=== PATIENT | female | born 1965 | race Caucasian/White ===

== ENCOUNTER 2018-10-20 02:52 | Emergency (ER) | payer SELFPAY ==
--- NOTE | 2018-10-20 03:31 | ED ---
Abdominal Pain/Female - HPI Summary HPI Summary: A 53 y/o F presents to ED c/o sudden-onset L-sided abd pain onset 2300 last night. The pain radiates to her back. Associated sx: nausea. Denies v/d, fever, dizziness, CARABALLO, dysuria. She has not had this type of pain previously. No previous hx of kidney stones. Past abd surgeries: cholecystectomy. Smoker. - History of Current Complaint Chief Complaint: EDAbdPain Stated Complaint: "L ABD PAIN" PER PT Time Seen by Provider: 10/20/18 03:23 Hx Obtained From: Patient, Medical Records Onset/Duration: Sudden Onset, Lasting Hours, Still Present Timing: Constant Severity Initially: Moderate Severity Currently: Severe Pain Intensity: 7 Pain Scale Used: 0-10 Numeric Location: Discrete At: LLQ Radiates: Yes Radiates to: Back Associated Signs and Symptoms: Positive: Nausea, Other: - neg: CARABALLO. Negative: Fever, Dizzy, Urinary Symptoms, Vomiting, Diarrhea Allergies/Adverse Reactions: Allergies Allergy/AdvReac Type Severity Reaction Status Date / Time MS Sulfa Antibiotics Allergy Unknown Unknown Verified 10/20/18 02:55 [Sulfa Antibiotics] Reaction Details PMH/Surg Hx/FS Hx/Imm Hx Previously Healthy: No Endocrine/Hematology History: Denies: Hx Diabetes Cardiovascular History: Reports: Hx Hypertension - d/c'd meds 6 yrs ago Sensory History: Reports: Hx Contacts or Glasses Opthamlomology History: Reports: Hx Contacts or Glasses Infectious Disease History: No Infectious Disease History: Denies: Hx Hepatitis, Traveled Outside the [place] in Last 30 Days - Family History Known Family History: Positive: Cardiac Disease - father - [place] at 60 y/o - Social History Occupation: Employed Full-time Lives: With Family Alcohol Use: None Hx Substance Use: No Substance Use Type: Reports: None Hx Tobacco Use: Yes Smoking Status (MU): Heavy Every Day Tobacco Smoker Review of Systems Negative: Fever Positive: Abdominal Pain, Nausea. Negative: Vomiting, Diarrhea Negative: dysuria Musculoskeletal: Other - pos: back pain Neurological: Other - neg: dizziness Negative: Headache All Other Systems Reviewed And Are Negative: Yes Physical Exam - Summary Physical Exam Summary: Appearance: well appearing, no pain distress, obese Skin: warm, dry, reflects adequate perfusion Head/face: normal Eyes: EOMI, LADONNA ENT: mucous membranes moist Neck: supple, non-tender Respiratory: CTA, breath sounds present Cardiovascular: RRR, pulses symmetrical Abdomen: non-tender, soft Bowel Sounds: present Musculoskeletal: normal, strength/ROM intact Neuro: normal, sensory motor intact, A&Ox3 Triage Information Reviewed: Yes Vital Signs On Initial Exam: Initial Vitals Temp Pulse Resp BP Pulse Ox 96.8 F 80 16 222/112 97 10/20/18 02:53 10/20/18 02:53 10/20/18 02:53 10/20/18 02:53 10/20/18 02:53 Vital Signs Reviewed: Yes Diagnostics - Vital Signs Vital Signs Temp Pulse Resp BP Pulse Ox 10/20/18 03:15 79 20 207/101 97 10/20/18 03:10 79 22 219/106 97 10/20/18 03:06 85 225/109 98 10/20/18 02:53 96.8 F 80 16 222/112 97 - Laboratory Result Diagrams: 10/20/18 03:43 10/20/18 03:43 Lab Statement: Any lab studies that have been ordered have been reviewed, and results considered in the medical decision making process. - CT ABd/PEL CT CT Interpretation Completed By: Radiologist Summary of CT Findings: IMPRESSION: 1. A 8 mm left UPJ stone with moderate hydronepthrosis. Significant left perinephric stranding which may be due to forniceal rupture. 2. A small hiatal hernia. 3. Colonic diverticulosis with no evidence of acute diverticulitis. 4. An umbilical hernia containing fat which appears mildly infiltrated. Correlate clinically for incarceration. 5. A fat containing left femoral hernia. 6. Hepatomegaly. ED provider has reviewed this report. - EKG 0327 Cardiac Rate: NL - 79 bpm EKG Rhythm: Sinus Rhythm ST Segment: Non-Specific Summary of EKG Findings: Nml interval. Nml axis. Artifact in V6. Re-Evaluation - Re-Evaluation 1 Re-Evaluation Time: 05:09 Change: Improved Comment: Discussing CT results with patient. After medication, her pain has improved, and her nausea has resolved. Abdominal Pain Fem Course/Dx - Course Course Of Treatment: Nurses' notes reviewed. Patient presents with left-sided renal colic. CT scan is consistent with a proximal stone with some stranding around the kidney. There is some inflammatory findings however the patient has not had a urinary symptoms and this was not a straight catheter specimen. She was given 2 g of IV Rocephin here after her pain was controlled with IV fluids and Toradol. We spoke with an urologist who will follow her up outpatient. She will continue outpatient antibiotic and pain control. It is likely that she may need a stent and lithotripsy. Return precautions given. Patient discharged also with antihypertensives that she has been unable to get as she has not been able to afford to visit her doctor. - Diagnoses Differential Diagnosis: Positive: Gall Bladder Disease, Ovarian Cyst, Pancreatitis, Renal Colic, Urinary Tract Infection Provider Diagnoses: Ureterolithiasis, Renal colic, Hypertension - Provider Notifications Discussed Care Of Patient With: Joe Can - uro Time Discussed With Above Provider: 06:17 Instructed by Provider To: Have Pt Call For Appt. Discharge - Sign-Out/Discharge Documenting (check all that apply): Patient Departure - D/C Patient Received Moderate/Deep Sedation with Procedure: No - Discharge Plan Condition: Improved Disposition: HOME Prescriptions: Cephalexin CAP* [Keflex CAP*] 500 mg PO TID #20 cap Hydrocodone/Acetaminophen [[place] 5-325 Tablet] 1 each PO TID PRN #10 tablet MDD 3 PRN Reason: more severe pain Naproxen [Naproxen 500 mg tab] 500 mg PO BID PRN #14 tablet PRN Reason: Pain Ondansetron ODT TAB* [Zofran 4 MG Odt TAB*] 4 mg PO Q8H PRN #12 tab.odt PRN Reason: Nausea Telmisartan 40 mg PO DAILY #30 tablet Patient Education Materials: Renal Colic (ED), Chronic Hypertension (ED) Referrals: [facility] [facility] REFERRAL [Outside] Joe Can MD [Medical Doctor] - Additional Instructions: Call the urologist to schedule prompt follow-up. Call this morning. Drink plenty of fluids. Return with uncontrolled pain, vomiting, fever, new symptoms or other concerns. Primary care referral line has been given to you. You will need Follow-up with her primary care doctor to help manage her blood pressure. - Billing Disposition and Condition Condition: IMPROVED Disposition: Home - Attestation Statements Document Initiated by Scribe: Yes Documenting Scribe: SooYoung Daniel Provider For Whom Scribe is Documenting (Include Credential): MD Junie De Leonibe Attestation: I, Kwabena Sanchez, scribed for Dr. Eder Joseph MD on 10/20/18 at 0638. Scribe Documentation Reviewed: Yes Provider Attestation: The documentation as recorded by the scribe, Kwabena Sanchez accurately reflects the service I personally performed and the decisions made by me, Dr. Eder Joseph MD Status of Scribe Document: Viewed
[2018-10-20] MEDS ORDERED: Labetalol IV* 5 MG/ML 20 ML VIAL IV PUSH ONE (03:35)
[2018-10-20] MEDS ORDERED: Ketorolac INJ* 30 MG/ML 1 ML VIAL IV PUSH ONE (03:35)
[2018-10-20] MEDS ORDERED: NS 0.9% 1000 ML** 1,000 ML IV ONE (03:35)
[2018-10-20] MEDS ORDERED: Ondansetron INJ* 2 MG/ML VIAL IV ONE (03:51)
[2018-10-20 04:08] LABS: ABS Basophils 0.1 10^3/ul (0-0.2); ABS Eosinophils 0.3 10^3/ul (0-0.6); ABS Lymphocytes 3.2 10^3/ul (1.0-4.8); ABS Monocytes 0.6 10^3/ul (0-0.8); ABS Neutrophils 6.6 10^3/ul (1.5-7.7); Eosinophil % 2.9 %; Hematocrit 46 % (35-47); Hemoglobin 15.8 g/dL (12.0-16.0); Lymphocyte % 29.5 %; Mean Corpuscular HGB Conc 34 g/dL (31-36); Mean Corpuscular Hemoglobin 29 pg (27-31); Mean Corpuscular Volume 85 fL (80-97); Mean Platelet Volume 8.6 fL (7.4-10.4); Nucleated Red Blood Cells % 0.1; Platelet Count 266 10^3/uL (150-450); Red Blood Count 5.46 10^6 /uL (3.70-4.87); Red Cell Distribution Width 15 % (10.5-15); White Blood Count 10.8 10^3/uL (3.5-10.8)
[2018-10-20 04:16] LABS: INR 0.97 (0.82-1.09)
[2018-10-20 04:25] LABS: ALT 15 U/L (7-52); AST 14 U/L (13-39); Albumin 4.2 g/dL (3.2-5.2); Albumin/Globulin Ratio 1.6 (1-3); Alkaline Phosphatase 92 U/L (34-104); Anion Gap 7 mmol/L (2-11); Blood Urea Nitrogen 17 mg/dL (6-24); C Reactive Protein 10.56 mg/L (<8.01); CO2 Carbon Dioxide 21 mmol/L (22-32); Calcium 9.4 mg/dL (8.6-10.3); Chloride 109 mmol/L (101-111); EGFR African American 88.8 (>60); EGFR Non-African American 73.4 (>60); Globulin 2.7 g/dL (2-4); Glucose 161 mg/dL (70-100); Potassium 3.6 mmol/L (3.5-5.0); Sodium 137 mmol/L (135-145); Total Protein 6.9 g/dL (6.4-8.9)
[2018-10-20 05:06] LABS: Urine Appearance Cloudy; Urine Bacteria 1+ (Absent); Urine Bilirubin Negative (Negative); Urine Blood 3+ (Negative); Urine Color Yellow; Urine Glucose Negative (Negative); Urine Ketones Negative (Negative); Urine Nitrite Negative (Negative); Urine Protein Negative (Negative); Urine Red Blood Cell 3+(>10/hpf) (Absent); Urine Specific Gravity 1.024 (1.010-1.030); Urine Squamous Epithelial Cell Present (Absent); Urine Urobilinogen Negative (Negative); Urine White Blood Cell 3+(>20/hpf) (Absent)
[2018-10-20] MEDS ORDERED: cefTRIAXone(*) 2 GM in NS 0.9% 100 ML* 100 ML IVPB ONE (05:09)
[2018-10-20 07:02] VITALS: BP 151/76
== END 2018-10-20 07:01 | disposition home or self-care (01) ==
LOC: ED 02:52
DX: N13.30 Unspecified hydronephrosis (principal); N20.1 Calculus of ureter; I10 Essential (primary) hypertension; Z72.0 Tobacco use; K42.9 Umbilical hernia without obstruction or gangrene; K44.9 Diaphragmatic hernia without obstruction or gangrene; K57.90 Diverticulosis of intestine, part unspecified, without perforation or abscess without bleeding; R16.0 Hepatomegaly, not elsewhere classified
CPT/HCPCS: 36415; 74176; 80053; 81003; 81015; 83605; 83690; 85025; 85610; 86140; 87086; 93005; 99284; J0696; J1885; J2405

== ENCOUNTER 2018-10-20 15:43 | Day surgery (SDC) | payer SELFPAY ==
--- NOTE | 2018-10-20 14:55 | HP ---
DATE OF ADMISSION/SURGERY: 10/20/2018. HISTORY OF PRESENT ILLNESS: Ms. Sauer is a 53-year-old, white female who is admitted with an obstructing left renal calculus for cystoscopy and insertion of left ureteral stent. Ms. Sauer presented to the emergency room last night with symptoms of left renal colic. She did not have any fever or chills. She had a noncontrast CT of the abdomen and pelvis which showed an 8 mm calculus at the left ureteropelvic junction associated with a moderate degree of hydronephrosis. No other renal calculi were noted. There was hepatomegaly and colonic diverticulosis, but no other abdominal abnormalities. The patient's urine analysis was positive for blood and esterase, but negative for nitrate. Her CBC showed a white count of 10,800 with normal differential. Chemistry showed a creatinine of 0.8. The patient was given one dose of Ceftriaxone. She was discharged home early this morning and was referred to my office for further management. PAST HISTORY: Past history is negative. No past history of any renal diseases or calculi. She has occasional episodes of urinary tract infections and reported having a distant history of pyelonephritis. 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 She has not had any PLATE FURNACE OPERATOR surgeries. PAST SURGICAL HISTORY: Relevant for cholecystectomy 12 years ago. MEDICATIONS: The patient is on no chronic medications. ALLERGIES: The patient reports being ALLERGIC TO SULFA DRUGS. FAMILY HISTORY: Relevant for coronary artery disease and lung cancer. No history of renal calculus disease. PERSONAL HISTORY: The patient is a smoker of under one pack per day for the last 43 years. No alcohol intake. No recreational drugs. PHYSICAL EXAMINATION GENERAL: Moderately overweight, otherwise healthy-looking white female. VITAL SIGNS: Blood pressure 140/96, pulse 80, temperature 98.2, oxygen saturation 95 percent on room air. LUNGS: Clear. HEART: Regular and rhythmic, no murmurs. ABDOMEN: Soft, no masses, no tenderness. There is mild to moderate left CVA tenderness. LABORATORY DATA: Urine analysis in the office today shows +1 blood, negative otherwise. IMPRESSION: Recent episode of left renal colic secondary to an 8 mm calculus at the left ureteropelvic junction associated with moderate left hydronephrosis. PLAN: Urgent placement of left ureteral stent in preparation for definitive treatment of the stone. [id number]/[facility] #: [id number] [facility]
--- NOTE | 2018-10-20 15:13 | PN ---
Progress Note - Progress Note Date of Service: 10/20/18 Note: Prescription by Dr. Washington for Micardis 40 mg daily cost $118. Patient has no insurance. Substituted with losartan 50 mg daily. Cost $4
[2018-10-20] MEDS ORDERED: Midazolam* 1 MG/ML 5 ML VIAL (5 MG) ONE (16:22)
[2018-10-20] MEDS ORDERED: fentaNYL* 50 MCG/ML 2 ML VIAL (100 MCG VIAL) ONE (16:22)
[2018-10-20] MEDS ORDERED: Famotidine IV* 10 MG/ML 2 ML (20 mg) ONE (16:32)
[2018-10-20] MEDS ORDERED: cefTRIAXone(*) 1 GM ADVAN/BAG ONE (17:07)
[2018-10-20] MEDS ORDERED: Famotidine IV* 10 MG/ML 2 ML (20 mg) IV SLOW PU ONE (17:41)
[2018-10-20] MEDS ORDERED: oxyCODONE TAB* 5 MG TAB PO PRN (17:45)
[2018-10-20] MEDS ORDERED: HYDROmorphone INJ1* 1 MG/ML SYRINGE IV PRN (17:45)
[2018-10-20] MEDS ORDERED: DiMENhydriNATE IV* 50 MG/ML VIAL IV PUSH PRN (17:45)
[2018-10-20] MEDS ORDERED: Naloxone* 0.4 MG/ML 1 ML VIAL IV PRN (17:45)
[2018-10-20] MEDS ORDERED: Acetaminophen IV 1GM/100ML * 1,000 MG/100 ML VIAL IVPB ONE (17:45)
[2018-10-20] MEDS ORDERED: Lactated Ringers 1000 ML Bag* 1,000 ML IV SCH (18:00)
[2018-10-20] MEDS ORDERED: Iohexol 180 (CONTRAST) 10 ML SDV IV ONE (18:45)
[2018-10-20] MEDS ORDERED: Ondansetron INJ* 2 MG/ML VIAL ONE (19:07)
[2018-10-20] MEDS ORDERED: DiMENhydriNATE IV* 50 MG/ML VIAL ONE (19:07)
[2018-10-20] MEDS ORDERED: Lidocaine 2% PF * 5 ML VIAL ONE (19:07)
[2018-10-20] MEDS ORDERED: Ketorolac INJ* 30 MG/ML 1 ML VIAL ONE (19:07)
[2018-10-20] MEDS ORDERED: Propofol* 10 MG/ML 20 ML BTL ONE (19:07)
[2018-10-20] MEDS ORDERED: Dexamethasone IV* 4 MG/ML 1 ML (4 MG) ONE (19:07)
[2018-10-20] MEDS ORDERED: Acetaminophen IV 1GM/100ML * 100 ML ONE (19:18)
[2018-10-20 20:10] VITALS: BP 181/90
--- NOTE | 2018-10-20 20:53 | OP ---
OPERATIVE REPORT: DATE OF OPERATION: 10/20/18 DATE OF : 61 SURGEON: Joe Can MD ANESTHESIOLOGIST: Dr. Choudhury. ANESTHESIA: General. PRE-OP DIAGNOSIS: Left renal calculus (Uretero-Pelvic junction, 8 mm). POST-OP DIAGNOSIS: Left renal calculus (Uretero-Pelvic junction, 8 mm). OPERATIVE PROCEDURE: 1. Cystoscopy. 2. Left retrograde pyelography. 3. Insertion of left ureteral stent (6-Belgian). INDICATION FOR PROCEDURE: Ms. aSuer is a 53-year-old female, who presented to the emergency room last night with symptoms of left renal colic and was noted on CT to have an 8 mm obstructing calculus at the left ureteropelvic junction. Her urine showed pyuria, but she did not seem to be infected. She was placed on antibiotics. She is now taken to the operating room for insertion of a left ureteral stent in preparation for definitive treatment of the stone. PATHOLOGY: At cystoscopy, there was an element of urethral stenosis and the urethra had to be gently dilated to allow the 20-Belgian cystoscope inside the bladder. Examination of the bladder showed normal mucosa. There were no changes of cystitis. The ureteral orifices looked normal. At fluoroscopy, a radiopaque calculus was noted in the area of the left ureteropelvic junction. On left retrograde pyelography, there was moderate degree of left hydronephrosis. DESCRIPTION OF PROCEDURE: After successful general anesthesia, the patient was placed in the lithotomy position and was prepped and draped for a cystoscopy. Cystoscopy was performed. The bladder was carefully inspected and the above findings were noted. A flexible hybrid guidewire was then introduced inside the left orifice and passed without difficulty inside the renal pelvis. An open-ended catheter was then fed on top of the guidewire and retrograde pyelography was performed. A size 6-Belgian stent was then placed with the proximal end coiling in the renal pelvis and the distal end coiling inside the bladder. The calculus was noted in the collecting system at the end of the procedure. The patient tolerated the procedure well and left the operating room in good condition. [id number]/[facility] #: [id number] [facility]
== END 2018-10-20 20:13 | disposition home or self-care (01) ==
LOC: OR 15:43
PROVIDERS: ATTEND Urology
DX: N13.2 Hydronephrosis with renal and ureteral calculous obstruction (principal); F17.210 Nicotine dependence, cigarettes, uncomplicated; I10 Essential (primary) hypertension
CPT/HCPCS: 74420; C1876; J0696; J1100; J1240; J1885; J2250; J2405; J2704; J3010

== ENCOUNTER 2018-11-09 05:42 | Day surgery (SDC) | payer SELFPAY ==
--- NOTE | 2018-11-02 10:32 | HP ---
INTERVAL HISTORY NOTE: DATE OF PLANNED ADMISSION AND SURGERY: 11/09/18 Please refer to my detailed history and physical for her admission on 10/20/18. HISTORY OF PRESENT ILLNESS: Mrs. Sauer is a 53-year-old white female who is admitted with left renal calculus, status post placement of left ureteral stent for shockwave lithotripsy of left renal calcu bonita and possible cystoscopy and removal of a left ureteral stent. Mrs. Sauer presented to the emergency room about 3 weeks ago with symptoms of left renal colic. Nonc ontrast CT of the abdomen and pelvis showed an 8 mm calculus at the left ureteropelvic junction assoc iated with moderate degree of hydronephrosis. No other calculi were noted and no other abnormal fi ndings were noted. She had incidental findings of hepatomegaly and colonic diverticulosis, but no ot her pathology. The patient was taken to the operating room that same day and had a cystoscopy and placement of a lef t ureteral stent. She did very well postoperatively. Postoperative KUB showed the left ureteral sten t in good position and the stone to have migrated into the renal pelvis above the upper coil of the s tent. The patient now is admitted for definitive treatment of the stone. PAST MEDICAL HISTORY: There have not been any changes in her past medical history. PHYSICAL EXAMINATION GENERAL: She is a moderately overweight, otherwise healthy-looking, white female. VITAL SIGNS: Blood pressure 140/88, pulse of 80, temperature 96, oxygen saturation 98% on room air. LUNGS: Clear. HEART: Regular and rhythmic. No murmurs. ABDOMEN: Soft without masses or tenderness and she has mild left CVA tenderness. IMPRESSION: 1. An 8 mm left renal calculus. 2. Status post placement of left ureteral stent. PLAN/RECOMMENDATIONS: Plan is for shockwave lithotripsy of the left renal calculus and, if there is good fragmentation of the stone, for cystoscopy and left ureteral stent removal. The patient understands that she might need additional treatment depending upon the adequacy of the f ragmentation of the stone and passage of its fragments. Some of the potential complications including hematuria and renal colic were discussed. All of her q uestions were answered. [id number]/[facility] #: [id number]
[~2018-11-09 05:42] MED LIST: Buffered Lidocaine 1% SYRIN* 1 ML/SYRINGE INTRADERM ONE
[2018-11-09] MEDS ORDERED: Lactated Ringers 1000 ML Bag* 1,000 ML IV SCH (06:00)
[2018-11-09] MEDS ORDERED: Famotidine IV* 10 MG/ML 2 ML (20 mg) IV ONE (06:00)
[2018-11-09] MEDS ORDERED: Famotidine IV* 10 MG/ML 2 ML (20 mg) ONE (06:05)
[2018-11-09] MEDS ORDERED: cefTRIAXone(*) 2 GM ADDV.VIAL IVPB ONE (06:05)
[2018-11-09] MEDS ORDERED: Buffered Lidocaine 1% SYRIN* 1 ML/SYRINGE INTRADERM ONE (06:05)
[2018-11-09] MEDS ORDERED: Ondansetron INJ* 2 MG/ML VIAL ONE (07:03)
[2018-11-09] MEDS ORDERED: Propofol* 10 MG/ML 20 ML BTL ONE (07:03)
[2018-11-09] MEDS ORDERED: Ketorolac INJ* 30 MG/ML 1 ML VIAL ONE (07:03)
[2018-11-09] MEDS ORDERED: Dexamethasone IV* 4 MG/ML 1 ML (4 MG) ONE (07:03)
[2018-11-09] MEDS ORDERED: Lidocaine 2% PF * 5 ML VIAL ONE (07:03)
[2018-11-09] MEDS ORDERED: fentaNYL* 50 MCG/ML 2 ML VIAL (100 MCG VIAL) ONE ×2 (07:04→08:47)
[2018-11-09] MEDS ORDERED: Midazolam* 1 MG/ML 5 ML VIAL (5 MG) ONE (07:04)
[2018-11-09] MEDS ORDERED: Ondansetron INJ* 2 MG/ML VIAL IV PRN (07:20)
[2018-11-09] MEDS ORDERED: fentaNYL* 50 MCG/ML 2 ML VIAL (100 MCG VIAL) IV PRN (07:20)
[2018-11-09] MEDS ORDERED: Naloxone* 0.4 MG/ML 1 ML VIAL IV PRN (07:20)
[2018-11-09] MEDS ORDERED: oxyCODONE/Acetamin 5/325 MG* TAB PO PRN (07:20)
[2018-11-09] MEDS ORDERED: EPHEDrine (Pressors)* 50 MG/ML VIAL ONE (08:47)
--- NOTE | 2018-11-09 09:45 | OP ---
DATE OF OPERATION: 11/09/18 - [facility] DATE OF : 61 SURGEON: Joe Can MD ANESTHESIOLOGIST: Dr. Andre Bowen. ANESTHESIA: General. PRE-OP DIAGNOSES: 1. Left renal calculus (1 cm). 2. Status post placement of left ureteral stent. POST-OP DIAGNOSES: 1. Left renal calculus (1 cm). 2. Status post placement of left ureteral stent. OPERATIVE PROCEDURE: 1. Shock wave lithotripsy of left renal calculus. 2. Cystoscopy and removal of left ureteral stent. INDICATION FOR PROCEDURE: Mrs. Sauer is a 53-year-old white female who had an urgent placement of obstructing 1 cm calculus in the proximal left ureter. Postoperative KUB showed the stone to have migrated into the renal pelvis. The patient has been doing fine. She is now admitted for definitive treatment of the stone. PATHOLOGY: Fluoroscopy showed the left ureteral stent in good position and the 1 cm calculus to be in the area of the renal pelvis above the stent. No other abnormal calcifications were noted. At cystoscopy, the distal limb of the stent was seen coming from the left orifice. There was expected edema of the bladder mucosa from the stent. DESCRIPTION OF PROCEDURE: After successful general anesthesia, the patient was placed in the supine position on the shock wave lithotripsy table. The left renal calculus was visualized in both the PA and the oblique x-ray views and the position of the patient and the generator were adjusted to have the stone in the focus of the shock waves. A total of 2400 shocks were then delivered at a rate of 60 shocks per minute. The maximum energy used was 5.5. A 2 minutes break was taken after the initial 300 shocks to decrease the risk of renal injury. The proper positioning and fragmentation of the stone were monitored periodically. At the completion of the treatment, there was very good fragmentation of the stone. Decision was then made to remove the stent. The patient was placed in a frog- leg position and was prepped and draped for cystoscopy. The urine draining from the bladder was clear. Cystoscopy was performed and the stent was removed intact. The patient tolerated the procedure well and left the operating room in good condition. [id number]/[facility] #: [id number] [facility]
[2018-11-09 09:48] VITALS: BP 162/84
== END 2018-11-09 10:22 | disposition home or self-care (01) ==
LOC: OR 05:42
PROVIDERS: ATTEND Urology
DX: N20.0 Calculus of kidney (principal); Z72.0 Tobacco use; I10 Essential (primary) hypertension; Z68.41 Body mass index [BMI] 40.0-44.9, adult; K21.9 Gastro-esophageal reflux disease without esophagitis
CPT/HCPCS: J0696; J1100; J1885; J2250; J2405; J2704; J3010